=== PATIENT | female | born 1970 | race Caucasian/White ===

== ENCOUNTER 2020-04-29 20:30 | Emergency (ER) | payer OTHER ==
[2020-04-29 21:13] VITALS: BP 137/73; PULSE 89; TEMP 98.1; BMI 29.7
--- NOTE | 2020-04-30 03:54 | PDOC ---
Documentation entered by Jamal Flanagan SCRIBE, acting as scribe for Belgica Benitez MD. Belgica Benitez MD: This documentation has been prepared by the Masha jose Angel, SCRIBE, under my direction and personally reviewed by me in its entirety. I confirm that the documentation accurately reflects all work, treatment, procedures, and medical decision making performed by me. History of Present Illness - General Chief Complaint: Edema Stated Complaint: SWOLLEN LEGS History Source: Patient Exam Limitations: No Limitations - History of Present Illness Initial Comments: 04/29/20 21:06 The patient is a 49 year old female with a significant past medical history of Gallbladder removal, bilateral breast reduction and augmentation, 2 abdominal hernias, hysterectomy, scoliosis, anxiety/depression, gastric bypass and a degenerative disc who presents to the ED with bilateral foot edema for 1 week. The patient states for the past week she has noticed worsening swelling in both of her legs. She states she takes care of her father at home and does not get to sit very often. The patient states 3 days ago she noticed her legs were much more red in color then they are currently in the ED as well much hotter to the touch. The patient notes visiting her PCP (Dr.Shin Mujica) multiple times and she believes it could be due to the patients chronic back history. The patient also experienced the same swelling about 4 months ago and after getting an ultrasound done they found nothing. The patient states the similar swelling that occurred 4 months ago also resolved on its own with no medications or help. The patient denies SOB, chest pain, cough, abdominal pain or fever/chills. Past History - Medical History Allergies/Adverse Reactions: Allergies Allergy/AdvReac Type Severity Reaction Status Date / Time amoxicillin Allergy Severe Rash Verified 04/29/20 21:00 morphine Allergy Intermediate Vomiting Verified 04/29/20 21:00 Home Medications: Ambulatory Orders NK [No Known Home Medication] 04/29/20 Review of Systems - Review of Systems Able to Perform ROS?: Yes Comments:: 04/29/20 21:06 GENERAL/CONSTITUTIONAL: No fever or chills. No weakness. HEAD, EYES, EARS, NOSE AND THROAT: No change in vision. No ear pain or discharge. No sore throat. CARDIOVASCULAR: No chest pain or shortness of breath. RESPIRATORY: No cough, wheezing, or hemoptysis. GASTROINTESTINAL: No nausea, vomiting, diarrhea or constipation. GENITOURINARY: No dysuria, frequency, or change in urination. MUSCULOSKELETAL: +Bilateral lower extremity swelling below the knees. No neck or back pain. SKIN: No rash NEUROLOGIC: No headache, vertigo, loss of consciousness, or change in strength/sensation. ENDOCRINE: No increased thirst. No abnormal weight change. HEMATOLOGIC/LYMPHATIC: No anemia, easy bleeding, or history of blood clots. ALLERGIC/IMMUNOLOGIC: No hives or skin allergy. *Physical Exam - Physical Exam 04/29/20 21:07 GENERAL: Awake, alert, and fully oriented, in no acute distress HEAD: No signs of trauma EYES: PERRLA, EOMI, sclera anicteric, conjunctiva clear ENT: Auricles normal inspection, hearing grossly normal, nares patent, oropharynx clear without exudates. Moist mucosa NECK: Normal ROM, supple, no lymphadenopathy, JVD, or masses LUNGS: Breath sounds equal, clear to auscultation bilaterally. No wheezes, and no crackles HEART: Regular rate and rhythm, normal S1 and S2, no murmurs, rubs or gallops ABDOMEN: Soft, nontender, normoactive bowel sounds. No guarding, no rebound. No masses EXTREMITIES: +2+ pitting edema just distal to the knees bilaterally with mild erythema. No clubbing or cyanosis. No cords, erythema, tenderness or increased warmth. NEUROLOGICAL: Cranial nerves II through XII grossly intact. Normal speech, normal gait SKIN: Warm, Dry, normal turgor, no rashes or lesions noted. ED Progress Note - Progress Note Progress Note: As noted above, this 49-year-old woman presents with a one-week history of bilateral lower extremity edema. Patient states that she has had similar bilateral swelling relatively recently, which reportedly resolved spontaneously. She also reports that her legs appeared redder and warmer few days ago but this also resolved spontaneously. No history of cellulitis. No strong risk factors for DVT. Exam as noted Doppler duplex ultrasound performed to rule out DVT: Interpretation by Dr. Mcdonald of the radiology staffno DVT in either leg Etiology of the patient's lower extremity edema is unclear although she has no evidence of CHF. Chronic venous insufficiency discussed with the patient; she should follow-up with her general doctor regarding further work-up of her bilateral lower extremity edema Patient will be discharged with instructions to keep her legs elevated as much as possible (heart level or above) and to avoid standing as much as possible. She should return to the emergency room if she has any evidence of cellulitis in either leg (increased redness, pain, warmth or if she develops fever). Otherwise, she should follow-up with her general medical doctor and to keep the scheduled appointment with a vascular surgeon on May 19, 2020 Discharge - Discharge Information Problems reviewed: Yes Clinical Impression/Diagnosis: Bilateral lower extremity edema Condition: Stable Disposition: HOME - Follow up/Referral - Patient Discharge Instructions Patient Printed Discharge Instructions: DI for Peripheral Edema -- Bilateral Additional Instructions: Elevate legs as much as possible Return to ER if you notice increased redness/increased warmth/ pain in your legs or you develop fever Follow-up with your general doctor within the next 5 days Follow-up with vascular surgeon as scheduled in 2 weeks - Post Discharge Activity
== END 2020-04-29 23:14 | disposition home or self-care (01) ==
LOC: FER 20:30
DX: R60.9 Edema, unspecified (principal)
CPT/HCPCS: 93970-TC; 99284-25